=== PATIENT | female | born 1950 | race Caucasian/White ===

== ENCOUNTER 2023-06-23 09:36 | Outpatient (CLI) | payer MEDICARE ==
[2023-06-23] MEDS ORDERED: Iopamidol 300 61% 100 ML VIAL FS ONE (13:47)
== END 2023-06-23 09:37 | disposition home or self-care (01) ==
LOC: CSHCT 09:36
PROVIDERS: ATTEND Internal Medicine
DX: C34.82 Malignant neoplasm of overlapping sites of left bronchus and lung (principal)
CPT/HCPCS: 71260; 74177